=== PATIENT | male | born 1955 | race African-American/Black ===

== ENCOUNTER 2021-04-21 16:17 | Emergency (ER) | payer OTHER, SELFPAY ==
--- NOTE | ~2021-04-21 | CT_ITS ---
EXAMINATION: CT abdomen pelvis w con DATE: 04/21/2021 23:09 INDICATION: Epigastric abdominal pain for 2 days. Pain at gastrostomy tube site. TECHNIQUE: Computed tomography (CT) of the abdomen and pelvis was performed with 100 cc Omnipaque 350 intravenous contrast. Automated exposure control and iterative reconstruction technique were employe d. Exam dose: 279.47 mGy-cm total exam DLP. COMPARISON: None. FINDINGS: Emphysematous changes are noted in the included lower lung zones. There is atelectasis and groundglass infiltrate in the lower lobes. Cardiomegaly. Mild pericardial effusion. Small sliding hiatal hernia. The gallbladder is distended. There is no apparent gallbladder wall thickening or pericholecystic flu id or fat stranding. No bile duct or pancreatic duct dilatation. No hepatic, splenic, pancreatic, adrenal or renal space-occupying mass lesion is evident. Bilateral r enal scarring. No suspicious renal mass lesion is evident. No urinary tract calculus or hydroureteron ephrosis is detected. IVC filter is noted. There is extensive calcification of the abdominal aorta appears calcification and ectasia of the katharina c arteries. The urinary bladder appears to be largely evacuated. There is prominent soft tissue density in the re gion of the prostate gland along the anterior wall of the rectum. Prostate or rectal malignancy is no t excluded. Gastrostomy tube is noted in the gastric lumen. No bowel obstruction or intraperitoneal free air is detected. There are some high density material wi thin the colon Prominent patchy sclerotic areas noted at the femoral heads suggesting avascular necrosis. IMPRESSION: Gastrostomy tube in gastric lumen Atelectasis and groundglass infiltrate in the lower lobes Cardiomegaly, mild pericardial effusion Small sliding hiatal hernia IVC filter Prominent soft tissue density in the prostate gland and anterior wall of the rectum; prostate or rect al malignancy is not excluded Bilateral femoral head avascular necrosis Reviewed, dictated and finalized at [facility]. Reviewed, dictated and finalized at [facility]. IMPRESSION: Gastrostomy tube in gastric lumen Atelectasis and groundglass infiltrate in the lower lobes Cardiomegaly, mild pericardial effusion Small sliding hiatal hernia IVC filter Prominent soft tissue density in the prostate gland and anterior wall of the re ctum; prostate or rectal malignancy is not excluded Bilateral femoral head avascular necrosis
--- NOTE | ~2021-04-21 | XR_ITS ---
XR chest 1V portable DATE: 04/21/2021 20:31 INDICATION: Cough, shortness of breath TECHNIQUE: Portable supine AP view on 04/21/2021 at 2027 hours COMPARISON: 07/02/2011 2 view chest FINDINGS: Bilateral hyperinflation suggesting obstructive airways disease. There is discoid scarring or atelectasis at the right lung base. Cardiomegaly. Aortic calcification. IMPRESSION: Bilateral hyperinflation suggesting COPD Discoid atelectasis or scarring at the right base Cardiomegaly Reviewed, dictated and finalized at location [facility].
[2021-04-21 16:39] VITALS: BP 90/66; PULSE 75; RESP 20; TEMP 36.7; O2SAT 99
[2021-04-21 18:12] LABS: Basophils Percent Auto 1.3 % (0.2-1.2); Hematocrit 41.4 % (42.0-52.0); Hemoglobin 12.8 g/dL (14.0-18.0); Immature Granulocyte Absolute 0.01 K/mm3 (0.00-0.031); Immature Granulocyte Percent A 0.3 % (0-0.5); Immature Platelet Fraction Pct 7.2 % (0.9-11.2); Lymphocytes Absolute Auto 1.12 K/mm3 (0.9-3.2); Lymphocytes Percent Auto 37.7 % (18.3-44.2); Mean Corpuscular HGB Conc 30.9 g/dl (32-36); Mean Corpuscular Hemoglobin 26.8 pg (26-34); Mean Corpuscular Volume 86.8 fl (80-100); Mean Platelet Volume 11.3 fl (7.4-10.4); Monocytes Absolute Auto 0.3 K/mm3 (0.1-0.6); Monocytes Percent Auto 10.8 % (2.6-8.5); Neutrophils Absolute Auto 1.5 K/mm3 (1.3-6.7); Neutrophils Percent Auto 48.9 % (45.5-73.1); Platelet Count Result 145 k/mm3 (150-375); Red Blood Count 4.77 M/mm3 (4.6-6.20); Red Cell Distribution Width 19.5 % (11.5-14.5)
--- NOTE | 2021-04-21 18:21 | PC.NURSE ---
per lab green top needs redrawn Rosy Callaway notified to draw pt in lobby.
[2021-04-21 19:01] VITALS: BP 86/62; PULSE 75; RESP 20; TEMP 36.8; O2SAT 100
[2021-04-21 19:01] LABS: Alanine Aminotransferase 69 U/L (4-50); Albumin Level 3.8 g/dL (3.5-5.1); Alkaline Phosphatase 248 U/L (38-126); Anion Gap 6 mmol/L (8-16); Aspartate Amino Transferase 61 U/L (17-59); Bilirubin,Total 0.9 mg/dL (0.2-1.3); Blood Urea Nitrogen 14 mg/dL (9-20); CRP 0.6 mg/dL (<1.0); Calcium 8.7 mg/dL (8.4-10.2); Carbon Dioxide 35 mmol/L (22-30); Chloride 96 mmol/L (98-107); Estimated CRCL calculation 62 ml/min; Estimated Glomerular Filt Rate > 60; Glucose 111 mg/dL (65-110); Potassium 3.4 mmol/L (3.4-5.0); Sodium 137 mmol/L (137-145)
[2021-04-21 19:47] VITALS: BP 108/81; PULSE 69; RESP 15; O2SAT 100
[2021-04-21 19:49] VITALS: RESP 15; O2SAT 100
[2021-04-21 23:00] LABS: Add Urine Microscopic? NO; Appearance Urine Clear (Clear); Bilirubin Urine Negative (Negative); Blood Urine Negative (Negative); Color Urine Yellow (Yellow); Glucose Urine UA Negative (Negative); Ketones Urine Negative (Negative); Leukocyte Esterase Ur Negative LEU/UL (Negative); Nitrate Urine Negative (Negative); Protein Urine Negative (Negative); Specific Grav Ur 1.013 (1.001-1.035); Urobilinogen Urine Negative mg/dL (<2.0)
--- NOTE | 2021-04-21 23:37 | ED.GENADULT ---
HPI - General Adult General Chief complaint: Unspecified Stated complaint: ABD PAIN HX OF G TUBE PLACEMENT, FEVER Time Seen by Provider: 04/21/21 19:55 History of Present Illness HPI narrative: Patient is a 65-year-old male who presents the ER with reports of epigastric pain. Located around his recent G-tube. Denies drainage. Recently placed at [facility]. Reports he had a stroke and developed pneumonia due to aspiration. Related Data Allergies Allergy/AdvReac Type Severity Reaction Status Date / Time NKDA Allergy Unknown Unknown Uncoded 04/21/21 19:44 Review of Systems Review of Systems: All systems reviewed & are unremarkable except as noted in HPI and below Constitutional: Constitutional: Denies chills, Reports fever(s) and Denies night sweats ENT: Denies sinus pressure and Denies sore throat Cardiovascular: Cardiovascular: Denies chest pain, Denies leg edema and Denies radiating jaw, neck or arm pain Respiratory: Respiratory: Denies chest congestion, Denies cough and Denies dyspnea Gastrointestinal: Gastrointestinal: Reports abdominal pain, Denies nausea and Denies vomiting PMFSH Past Medical History Medical History (Updated 04/21/21 @ 23:56 by Jun Nath MD) CVA (cerebral vascular accident) Depression Hypertension Seizure disorder Surgical History Surgical History (Updated 04/21/21 @ 23:56 by Jun Nath MD) Gastrointestinal tube present Social History Social History (Updated 04/21/21 @ 23:56 by Jun Nath MD) Social History: History of alcohol abuse Gender identity (if verbalized by the patient): Male Exam Narrative: GENERAL: Well-appearing, well-nourished, and in no acute distress. HEAD: Normocephalic, atraumatic. EYES: PERRL and EOMI. ENT: Mucous membranes moist. CHEST: Clear to auscultation. No respiratory distress. HEART: Regular rate and rhythm. Normal peripheral pulses. ABDOMEN: Soft, G-tube site with sutures still in place. No purulent drainage. Mild discomfort around G-tube site. Nondistended. EXTREMITIES: Normal range of motion. No edema. Left-sided weakness. SKIN: Warm, dry, no rash. NEURO: Alert and oriented x3. Chronic left-sided hemiparesis. PSYCH: Normal mood and affect. Course Course Emergency Course: Patient informed of results. Discharge home. Vital Signs Vital signs: Vital Signs Temperature 98.1 F 04/21/21 16:39 Pulse Rate 75 04/21/21 16:39 Respiratory Rate 20 04/21/21 16:39 Blood Pressure 90/66 L 04/21/21 16:39 Pulse Oximetry 99 04/21/21 16:39 Temperature 98.2 F 04/21/21 19:01 Pulse Rate 72 04/22/21 01:01 Respiratory Rate 15 04/22/21 01:01 Blood Pressure 110/80 04/22/21 01:01 Pulse Oximetry 100 04/22/21 01:01 Medical Decision Making Vital Signs Vital Signs: Vital Signs Temperature 98.1 F 04/21/21 16:39 Pulse Rate 75 04/21/21 16:39 Respiratory Rate 20 04/21/21 16:39 Blood Pressure 90/66 L 04/21/21 16:39 Pulse Oximetry 99 04/21/21 16:39 Temperature 98.2 F 04/21/21 19:01 Pulse Rate 72 04/22/21 01:01 Respiratory Rate 15 04/22/21 01:01 Blood Pressure 110/80 04/22/21 01:01 Pulse Oximetry 100 04/22/21 01:01 Lab Data Result diagrams: 04/21/21 17:43 04/21/21 18:33 Labs: Lab Results 04/21/21 04/21/21 04/21/21 Range/Units 17:43 17:43 18:33 WBC 3.0 L (4.5-10.0) K/mm3 RBC 4.77 (4.6-6.20) M/mm3 Hgb 12.8 L (14.0-18.0) g/dL Hct 41.4 L (42.0-52.0) % MCV 86.8 (80-100) fl MCH 26.8 (26-34) pg MCHC 30.9 L (32-36) g/dl RDW 19.5 H (11.5-14.5) % Plt Count 145 L (150-375) k/mm3 MPV 11.3 H (7.4-10.4) fl Immature Gran % (Auto) 0.3 (0-0.5) % Neut % (Auto) 48.9 (45.5-73.1) % Lymph % (Auto) 37.7 (18.3-44.2) % Rock % (Auto) 10.8 H (2.6-8.5) % Eos % (Auto) 1.0 (0-4.4) % Baso % (Auto) 1.3 H (0.2-1.2) % Lymph # (Auto) 1.12 (0.9-3.2) K/mm3 Rock # (Auto) 0.3
[2021-04-22 01:01] VITALS: BP 110/80; PULSE 72; RESP 15; O2SAT 100
== END 2021-04-22 01:39 ==
PROVIDERS: Emergency Provider Emergency Medicine; PCP Internal Medicine
DX: R10.13 Epigastric pain (principal); I10 Essential (primary) hypertension; G40.909 Epilepsy, unspecified, not intractable, without status epilepticus; Z93.1 Gastrostomy status; Z86.73 Personal history of transient ischemic attack (TIA), and cerebral infarction without residual deficits; I51.7 Cardiomegaly; K44.9 Diaphragmatic hernia without obstruction or gangrene; M87.9 Osteonecrosis, unspecified; R91.8 Other nonspecific abnormal finding of lung field; R93.49 Abnormal radiologic findings on diagnostic imaging of other urinary organs
CPT/HCPCS: 36415; 51701; 71045; 74177; 80053; 81003; 83605; 85025; 85055; 86140; 99284; Q9967

== ENCOUNTER 2023-11-14 21:25 | Inpatient (IN) | payer MEDICARE, MEDICAID, SELFPAY ==
--- NOTE | ~2023-11-14 | CT_ITS ---
Non-contrast CT scan of the Abdomen and Pelvis Clinical indication: Abdominal pain Technique: 2.5 mm axial scans were obtained through the abdomen and pelvis without intravenous or or al contrast. Dose reduction technique was used on this scan by utilizing automated exposure control a nd iterative reconstruction technique. The dose-length product (DLP) was 371.06 mGy-cm. COMPARISON: 04/21/2021 Findings: Images through the lung bases reveal no acute abnormalities. [id number] hiatal tamika ia noted. There is no evidence of renal or ureteral calculi. The kidneys and the ureters are nondilated. The liver, spleen, pancreas, gallbladder, and adrenals appear normal. IVC filter present. There are a therosclerotic calcifications of the aorta. Right inguinal hernia contains a loop of small bowel. Left inguinal hernia contains several loops of small bowel. No bowel obstruction or bowel wall thickening evident. Images through the pelvis were performed. There is no evidence of ascites or lymphadenopathy. Urinary bladder unremarkable. No pelvic mass evident. Impression: Bilateral small bowel containing inguinal hernias, left larger than right. No bowel obstruction or wing wel wall thickening. Reviewed, dictated and finalized at location . Impression: Bilateral small bowel containing inguinal hernias, left larger than right. No b owel obstruction or bowel wall thickening.
--- NOTE | ~2023-11-14 | XR_ITS ---
Clinical Indication: Weakness PA and lateral views of the chest: Comparison: 04/21/2021 Findings: The lungs are clear, without evidence of focal consolidation or pleural effusion. Possible COPD. Cardiomediastinal silhouette is within normal limits. Bones and soft tissues are unremarkable. Impression: Clear lungs. Possible COPD. Reviewed, dictated and finalized at location . Impression: Clear lungs. Possible COPD.
--- NOTE | 2023-11-14 21:30 | ECG_ITS ---
Measurements Intervals [place] Rate: 66 P: 58 TN: 147 QRS: -1 QRSD: 88 T: 76 QT: 428 QTc: 452 Interpretive Statements SINUS RHYTHM MINIMAL Q WAVES- LATERAL LEADS BASELINE ARTIFACT- I, II, III, AVR, AVL, AVF, V1-V6 BORDERLINE ECG NO PREVIOUS ECG AVAILABLE FOR COMPARISON Electronically Signed On 11-15-2023 6:38:44 CDT by Jabier Neumann D.O.
[2023-11-14 21:31] VITALS: BP 74/60; PULSE 71; RESP 12; TEMP 36.4; O2SAT 100
[2023-11-14 21:35] VITALS: PULSE 85; O2SAT 100
[2023-11-14 23:04] VITALS: BP 103/64; PULSE 71; RESP 16; O2SAT 95
[2023-11-14 23:06] LABS: Basophils Absolute Auto 0.1 K/mm3 (0.0-0.1); Basophils Percent Auto 0.5 % (0.2-1.2); Eosinophils Absolute Auto 0.1 K/mm3 (0-0.3); Eosinophils Percent Auto 0.8 % (0-4.4); Hematocrit 41.6 % (42.0-52.0); Hemoglobin 12.6 g/dL (14.0-18.0); Immature Granulocyte Absolute 0.04 K/mm3 (0.00-0.031); Immature Granulocyte Percent A 0.4 % (0-0.5); Lymphocytes Absolute Auto 1.63 K/mm3 (0.9-3.2); Lymphocytes Percent Auto 14.4 % (18.3-44.2); Mean Corpuscular HGB Conc 30.3 g/dl (32-36); Mean Corpuscular Volume 95.9 fl (80-100); Mean Platelet Volume 9.1 fl (7.4-10.4); Monocytes Percent Auto 8.6 % (2.6-8.5); Neutrophils Absolute Auto 8.5 K/mm3 (1.3-6.7); Neutrophils Percent Auto 75.3 % (45.5-73.1); Platelet Count Result 250 k/mm3 (150-375); Red Blood Count 4.34 M/mm3 (4.6-6.20); Red Cell Distribution Width 14.5 % (11.5-14.5); White Blood Count 11.3 K/mm3 (4.5-10.0)
[2023-11-14 23:19] LABS: Alanine Aminotransferase 32 U/L (6-50); Albumin Level 3.7 g/dL (3.5-5.1); Alkaline Phosphatase 115 U/L (38-126); Anion Gap 7 mmol/L (8-16); Aspartate Amino Transferase 38 U/L (17-59); Bilirubin,Total 0.6 mg/dL (0.2-1.3); Blood Urea Nitrogen 35 mg/dL (9-20); Calcium 7.8 mg/dL (8.4-10.2); Carbon Dioxide 25 mmol/L (22-30); Chloride 108 mmol/L (98-107); Estimated CRCL calculation 15 ml/min; Estimated Glomerular Filt Rate 19; Glucose 120 mg/dL (65-110); Potassium 4.5 mmol/L (3.4-5.0); Sodium 140 mmol/L (137-145)
[2023-11-14] MEDS: SODIUM CHLORIDE 0.9% IV 1,000 ML 999 ML IV CONT (23:27)
[2023-11-14] MEDS: ONDANSETRON INJ 4 MG/2 ML VIAL IV PUSH (23:27)
[2023-11-14 23:49] LABS: Lipase 364 U/L (23-300)
[2023-11-14 23:50] LABS: Lactic Acid Reflex 1.5 mmol/L (0.7-2.0)
[2023-11-15] VITALS (14 sets, daily range): BP systolic 98–133; BP diastolic 59–97; PULSE 67–86; RESP 12–18; TEMP 36.4–37; O2SAT 95–100; BMI 21.8
[2023-11-15 00:09] LABS: Troponin I 0.074 ng/mL (0.000-0.034)
[2023-11-15 00:29] LABS: Influenza A QL RT-PCR Negative (Negative); Influenza B QL RT-PCR Negative (Negative); RSV RNA, RT-PCR Negative (Negative); SARS-CoV-2 RNA PCR Negative (Negative)
[2023-11-15] MEDS: ASPIRIN 81 MG CHEWABLE TABLET 324 MG PO (01:22)
--- NOTE | 2023-11-15 01:22 | ED.GENADULT ---
HPI - General Adult General Chief complaint: Weakness Stated complaint: vomiting Time Seen by Provider: 11/14/23 22:44 History of Present Illness HPI narrative: Patient is 67-year-old gentleman who presents to emergency department with chief complaint of weakness and lethargy patient is a resident over at [facility] and recently had a stroke. The patient had had an episode of vomiting that they were concerned may have been coffee-ground the patient is on Eliquis. The patient reports no black tarry stool denies bloody emesis. The patient states that he has some abdominal discomfort and reports that his right shoulder feels uncomfortable. Related Data Home Medications Medication Instructions Recorded Confirmed albuterol sulfate 2.5 mg/3 mL 2.5 mg inhalation Q4H PRN 11/02/23 11/02/23 (0.083 %) solution for nebulization Shortness Of Breath Or Wheezing amiodarone 200 mg tablet 200 mg PO DAILY 11/02/23 11/02/23 apixaban 5 mg tablet (Eliquis) 5 mg PO Q12H 11/02/23 11/02/23 atorvastatin 80 mg tablet 80 mg PO HS 11/02/23 11/02/23 clonazepam 0.5 mg tablet 0.5 mg PO DAILY 11/02/23 11/02/23 empagliflozin 10 mg tablet 10 mg PO DAILY 11/02/23 11/02/23 furosemide 20 mg tablet 20 mg PO DAILY 11/02/23 11/02/23 ipratropium 0.5 mg-albuterol 3 mg 3 ml inhalation Q6H PRN Wheezing 11/02/23 11/02/23 (2.5 mg base)/3 mL nebulization soln levetiracetam 1,000 mg tablet 1,250 mg PO BID 11/02/23 11/02/23 levothyroxine 100 mcg tablet 125 mcg PO DAILY 11/02/23 11/02/23 metoprolol tartrate 25 mg tablet 25 mg PO DAILY 11/02/23 11/02/23 multivitamin with folic acid 400 mcg PO DAILY 11/02/23 11/02/23 sacubitril 49 mg-valsartan 51 mg 1 tablet PO BID 11/02/23 11/02/23 tablet (Entresto) umeclidinium 62.5 mcg/actuation 1 inh inhalation DAILY 11/02/23 11/02/23 blister powder for inhalation (Incruse Ellipta) Allergies Allergy/AdvReac Type Severity Reaction Status Date / Time NKDA Allergy Unknown Unknown Uncoded 04/21/21 19:44 Review of Systems Review of Systems: A 10 system review of systems was completed on the patient and is negative except for what is stated in the HPI. Nursing and ancillary documentation was reviewed. [facility] Past Medical History Medical History CVA (cerebral vascular accident) Depression Hypertension Seizure disorder Surgical History Surgical History Gastrointestinal tube present Social History Social History Social History: History of alcohol abuse Alcohol intake: never Substance use: never Substance use type: does not use Do You Feel Safe in your Home?: Yes Lack of Transportation: No Lack of Food: Never True Current Housing: I Have Housing Concerned About Future Housing: No Difficulty Paying Gas/Electric Bills: No Difficulty Paying for Meds: No Currently Unemployed: No Education: Don't Know Difficulty w/ Childcare or Family Care: No Gender identity (if verbalized by the patient): Male Spiritual care concerns: No Exam Narrative: GENERAL: Well-appearing, well-nourished, and in no acute distress. HEAD: Normocephalic, atraumatic. EYES: PERRLA and EOMI. ENT: Nares clear, no rhinorrhea or epistaxis. Mucous membranes moist. NECK: Supple. CHEST: Clear to auscultation. No respiratory distress. HEART: Regular rate and rhythm. No murmur heard. Normal peripheral pulses. ABDOMEN: Soft, nontender, nondistended, normal active bowel sounds. : Guaiac-negative stool EXTREMITIES: Normal range of motion. No edema. SKIN: Warm, dry, no rash. NEURO: No focal deficits. Alert and oriented x3. Left-sided weakness at baseline PSYCH: Normal mood and affect. Course Vital Signs Vital signs: Vital Signs Temperature 36.4 C 11/14/23 21:31 Pulse Rate 71 11/14/23 21:31 Respiratory Rat
[2023-11-15] MEDS: SODIUM CHLORIDE 0.9% IV 1,000 ML 999 ML IV CONT (01:27)
[2023-11-15 02:07] LABS: Appearance Urine Cloudy (Clear); Bacteria Urine None Seen /hpf; Bilirubin Urine Negative (Negative); Blood Urine 2+ (Negative); Color Urine Yellow (Yellow); Glucose Urine UA 3+ mg/dL (Negative); Granular Casts Urine Present /lpf; Ketones Urine Negative (Negative); Leukocyte Esterase Ur Negative LEU/UL (Negative); Mucus Urine Present /lpf; Need Manual Microscopic Reviewed; Nitrate Urine Negative (Negative); Non Pathogenic Casts >20; Protein Urine 1+ mg/dL (Negative); RBC Urine 0-2 /hpf (0-2); Squamous Epithelial Cell Urine Occasional /hpf (Few); Urobilinogen Urine 0.2 mg/dL (<2.0)
[2023-11-15 02:10] LABS: Add Urine Microscopic? YES
[2023-11-15] MEDS: SODIUM CHLORIDE 0.9% IV 1,000 ML 125 ML IV CONT ×2 (03:50→14:39)
--- NOTE | 2023-11-15 05:10 | ADMGEN ---
This patient, Tio Agarwal, was admitted to IMU Room 204-01 at 0450. Patient/family oriented to hospital policies and general routines including ID bracelet, bed and alarms, visiting hours, pain management, procedures, bathroom and other care routines, personal items, smoking policy, room service/diet, and visiting hours. Information on how to activate the Rapid Response Team has been discussed. Patient/Family are encouraged to report perceived risks to care and to ask questions if they do not understand what they are told or what they should do.
[2023-11-15 06:31] LABS: Basophils Percent Auto 0.5 % (0.2-1.2); Eosinophils Absolute Auto 0.1 K/mm3 (0-0.3); Eosinophils Percent Auto 1.3 % (0-4.4); Hematocrit 37.9 % (42.0-52.0); Hemoglobin 11.4 g/dL (14.0-18.0); Immature Granulocyte Absolute 0.02 K/mm3 (0.00-0.031); Immature Granulocyte Percent A 0.2 % (0-0.5); Lymphocytes Absolute Auto 1.56 K/mm3 (0.9-3.2); Mean Corpuscular HGB Conc 30.1 g/dl (32-36); Mean Corpuscular Hemoglobin 29.1 pg (26-34); Mean Corpuscular Volume 96.7 fl (80-100); Mean Platelet Volume 9.4 fl (7.4-10.4); Monocytes Absolute Auto 0.6 K/mm3 (0.1-0.6); Monocytes Percent Auto 7.3 % (2.6-8.5); Neutrophils Absolute Auto 6.3 K/mm3 (1.3-6.7); Neutrophils Percent Auto 72.7 % (45.5-73.1); Platelet Count Result 213 k/mm3 (150-375); Red Blood Count 3.92 M/mm3 (4.6-6.20); Red Cell Distribution Width 14.4 % (11.5-14.5); White Blood Count 8.7 K/mm3 (4.5-10.0)
[2023-11-15 06:45] LABS: Anion Gap 5 mmol/L (8-16); Blood Urea Nitrogen 34 mg/dL (9-20); Calcium 7.3 mg/dL (8.4-10.2); Carbon Dioxide 21 mmol/L (22-30); Chloride 114 mmol/L (98-107); Estimated CRCL calculation 27 ml/min; Estimated Glomerular Filt Rate 30; Glucose 112 mg/dL (65-110); Potassium 4.5 mmol/L (3.4-5.0); Sodium 140 mmol/L (137-145)
--- NOTE | 2023-11-15 08:25 | PM.IMHP ---
H&P: HPI History of Present Illness Date/Time: 11/15/23 08:25 Chief Complaint: weakness vomiting Narrative: This is a 67 year old year old male with a significant past medical history of CVA, depression, hypertension, seizure disorder, G-tube placement who presented to the hospital from [facility] with chief complaint of weakness, lethargy, and vomiting. Patient states that he was recently hospitalized at [facility] after having seizures. On discharge he was transported to [facility] for additional strength training. While there, nursing reported that he had what looked like a coffee ground emesis and considering he is on Eliquis, they sent him here to [facility] for additional work up. Work up in the hospital includes CT of the abdomen and pelvis which shown bilateral small bowel containing inguinal hernias, left larger than right, no bowel obstruction or bowel wall thickening. CXR normal. Initial labs WBC 10.9, Hgb 13.3, BUN 36, Creatinine 3.50, eGFR 21, Calcium 8.3, AST 71, troponin 0.074, Lipase 364 liver enzymes are normal. UA showing 1+ protein, 3+ glucose, 2+ urine blood. Respiratory panel negative for Influenza A and B, RSV, and Covid. Patient received 2L NS, Zofran, Aspirin 324 mg while in the ER. General surgery consulted for evaluation of his inguinal hernia's found on CT. On examination today patient is alert and oriented x3, lying in the bed. VSS, he is afebrile, currently on room air. He denies any fever, chills, headache, nausea, vomiting, diarrhea, abdominal pain, chest pain, or shortness of breath. He states that he only had one episode of vomiting and DIANNE sent him here for evaluation. Labs today reveal Hgb 11.4, Bicarb 21, BUN 34, Creatinine 2.60, eGFR 30, Troponin 0.048>0.039 and remains flat, LIpase 186. Review of Systems Review of Systems: All systems reviewed & are unremarkable except as noted in HPI and below Constitutional: Constitutional: Reports as per HPI and Reports no additional constitutional complaints Eyes: Eyes: Reports as per HPI and Reports no additional eye complaints ENT: Reports system reviewed and no additional complaints, except as documented and Reports as per HPI Cardiovascular: Cardiovascular: Reports as per HPI and Reports no additional cardiovascular complaints Respiratory: Respiratory: Reports as per HPI and Reports no additional respiratory complaints Gastrointestinal: Gastrointestinal: Reports as per HPI and Reports no additional gastrointestinal complaints Genitourinary: Genitourinary: Reports no additional male genitourinary complaints and Reports as per HPI Musculoskeletal: Musculoskeletal: Reports no additional musculoskeletal complaints and Reports as per HPI Integumentary/Breasts: Skin/Breast: Reports system reviewed and no additional complaints, except as docu and Reports as per HPI Neurologic: Reports system reviewed and no additional complaints, except as documented and Reports as per HPI Psychiatric: Psychiatric: Reports no additional psychiatric complaints and Reports as per HPI PMFSH Past Medical History Medical History CVA (cerebral vascular accident) Depression Emesis History of gastrostomy tube placement Since removed Hypertension Hypothyroid Seizure disorder Social History Social History Social History: History of alcohol abuse Years smoked: 50 Smoking status: Current every day smoker Tobacco type: cigarettes Second hand tobacco smoke exposure: No Additional smoking assessment comments: pt states he sneaks his 3 cigarettes into rehab to smoke each day Alcohol intake: former Substance use: never Substance use type: does not use Do You Feel Safe in your Home?: Yes Lack of Transportation: No Lack of Food: Sometimes True Current Housing: I Have Housing Concerned About Future Housing: No Difficu
--- NOTE | 2023-11-15 09:10 | PC.NURSE ---
Pt retaining 790 mL of urine per bladder scan. Mireya MATERIAL RECLAIMER notified. Order to insert champagne.
[2023-11-15] MEDS: MULTIVITAMINS /C LUTEIN (CENTRUM SILVER) TABLET *BKC 1 TAB PO (09:36)
[2023-11-15] MEDS: METOPROLOL SUCCINATE EXT REL 25 MG TABCR 75 MG PO (09:36)
[2023-11-15] MEDS: ASPIRIN 81 MG CHEWABLE TABLET PO (09:37)
[2023-11-15] MEDS: LEVOTHYROXINE SODIUM 125 MCG TABLET PO (09:37)
[2023-11-15] MEDS: levETIRAcetam 500 MG TABLET 1000 MG PO ×2 (09:37→21:27)
[2023-11-15] MEDS: AMIODARONE HCL 200 MG TABLET PO (09:37)
[2023-11-15] MEDS: NICOTINE (*PBKC) 21 MG PATCH 1 PATCH TRANSDERM (09:40)
[2023-11-15 09:56] LABS: Lipase 186 U/L (23-300)
[2023-11-15 10:08] LABS: Troponin I 0.048 ng/mL (0.000-0.034)
--- NOTE | 2023-11-15 10:25 | PM.CNGS ---
Assessment and Plan Assessment and plan (1) Inguinal hernia bilateral, non-recurrent: Code(s): K40.20 - Bilateral inguinal hernia, without obstruction or gangrene, not specified as recurrent Status: Acute Assessment and Plan: CT scan in the ER showed bilateral inguinal hernias that are containing small bowel. No evidence of obstruction or strangulation. Both hernias are completely reducible and asymptomatic. They are chronic for the patient. This is not the reason for his admission, but was incidentally found on CT. Discussed with the patient that there is no indication for any urgent surgical intervention, but he could follow-up as an outpatient if he wanted to be evaluated for surgical repair after his acute medical issues have been addressed. We also discussed that he has multiple comorbidities listed below that would increase his risks for surgery if this was considered in the future. I spoke with him about signs and symptoms of incarceration and strangulation, which could occur in the future while monitoring his hernias. (2) Emesis: Code(s): R11.10 - Vomiting, unspecified Status: Acute (3) Urinary retention: Code(s): R33.9 - Retention of urine, unspecified Status: Acute (4) Acute kidney injury: Code(s): N17.9 - Acute kidney failure, unspecified Status: Acute (5) Elevated troponin: Code(s): R79.89 - Other specified abnormal findings of blood chemistry Status: Acute (6) A-fib: Code(s): I48.91 - Unspecified atrial fibrillation Status: Chronic (7) Anticoagulant long-term use: Code(s): Z79.01 - custodial (current) use of anticoagulants Status: Acute (8) COPD (chronic obstructive pulmonary disease): Code(s): J44.9 - Chronic obstructive pulmonary disease, unspecified Status: Acute (9) H/O: CVA (cerebrovascular accident): Code(s): Z86.73 - Personal history of transient ischemic attack (TIA), and cerebral infarction without residual deficits Status: Chronic (10) HFrEF (heart failure with reduced ejection fraction): Code(s): I50.20 - Unspecified systolic (congestive) heart failure Status: Acute Plan I have discussed the patient's case and plan of care with Dr. Hernandez. History of Present Illness Consult details Consult date: 11/15/23 Reason for consult: other (Bilateral inguinal hernias containing small bowel) Requesting physician: Mireya Dill APRN Narrative: This is a 67-year-old man with a history of CVA, atrial fibrillation on Eliquis, COPD, and other medical problems, who we have been asked to see in surgical consultation for bilateral inguinal hernias. The patient was admitted to [facility] in October for seizures. On discharge, he was transferred to [facility]. The patient reports living at home prior to his admission a [facility] in October. He reports having his stroke about 2 years ago with residual left-sided weakness, and he eventually gained enough strength to walk and be independent enough to live at home after his stroke until his recent hospitalization at [facility]. He was brought into the ER from [facility] due to reported coffee-ground emesis. Workup in the ER showed mild leukocytosis, DOMINGO, and elevated troponin. Chest x-ray showed findings of COPD. CT scan of the abdomen and pelvis showed bilateral small bowel containing inguinal hernias, left larger than right. No bowel obstruction or bowel wall thickening. He was admitted to the IMU. The patient reports noticing a bulge in his groin for at least the last 7-8 months. He denies ever having any pain in his groin. He is not having any pain at the time of my exam. No previous hernia repairs. Denies any previous abdominal surgeries, although he has a scar consistent with previous gastrostomy tube and this is mentioned in his EMR. Patient did not recall this. Also in review of his rehab documentation, there is mention of having
[2023-11-15] MEDS: TAMSULOSIN HCL 0.4 MG CAPSULE PO (12:01)
[2023-11-15 13:01] LABS: Troponin I 0.039 ng/mL (0.000-0.034)
[2023-11-15] MEDS: APIXABAN 5 MG TABLET PO (21:27)
[2023-11-15] MEDS: ATORVASTATIN 40 MG TABLET 80 MG PO (21:27)
[2023-11-15] MEDS: ZOLPIDEM TARTRATE (*CRX) 5 MG TABLET PO (21:27)
[2023-11-16] VITALS (10 sets, daily range): BP systolic 120–128; BP diastolic 81–89; PULSE 60–84; RESP 14–18; TEMP 36.3–36.6; O2SAT 95–100; BMI 20.7
[2023-11-16] MEDS: clonazePAM (*CRX) 0.5 MG TABLET PO ×2 (01:20→09:44)
[2023-11-16 04:38] LABS: Basophils Percent Auto 0.5 % (0.2-1.2); Eosinophils Absolute Auto 0.1 K/mm3 (0-0.3); Eosinophils Percent Auto 2.4 % (0-4.4); Hematocrit 33.8 % (42.0-52.0); Hemoglobin 10.3 g/dL (14.0-18.0); Immature Granulocyte Absolute 0.01 K/mm3 (0.00-0.031); Immature Granulocyte Percent A 0.2 % (0-0.5); Lymphocytes Absolute Auto 1.39 K/mm3 (0.9-3.2); Lymphocytes Percent Auto 23.6 % (18.3-44.2); Mean Corpuscular HGB Conc 30.5 g/dl (32-36); Mean Corpuscular Hemoglobin 29.4 pg (26-34); Mean Corpuscular Volume 96.6 fl (80-100); Mean Platelet Volume 9.6 fl (7.4-10.4); Monocytes Absolute Auto 0.5 K/mm3 (0.1-0.6); Monocytes Percent Auto 7.7 % (2.6-8.5); Neutrophils Absolute Auto 3.9 K/mm3 (1.3-6.7); Neutrophils Percent Auto 65.6 % (45.5-73.1); Platelet Count Result 204 k/mm3 (150-375); White Blood Count 5.9 K/mm3 (4.5-10.0)
[2023-11-16 05:11] LABS: Alanine Aminotransferase 23 U/L (6-50); Albumin Level 2.8 g/dL (3.5-5.1); Alkaline Phosphatase 86 U/L (38-126); Anion Gap 1 mmol/L (8-16); Aspartate Amino Transferase 30 U/L (17-59); Bilirubin,Total 0.8 mg/dL (0.2-1.3); Blood Urea Nitrogen 18 mg/dL (9-20); Calcium 7.9 mg/dL (8.4-10.2); Carbon Dioxide 24 mmol/L (22-30); Chloride 110 mmol/L (98-107); Estimated CRCL calculation 50 ml/min; Estimated Glomerular Filt Rate > 60; Glucose 139 mg/dL (65-110); Lipase 101 U/L (23-300); Magnesium 2.3 mg/dL (1.6-2.3); Potassium 3.9 mmol/L (3.4-5.0); Sodium 135 mmol/L (137-145)
[2023-11-16] MEDS: LEVOTHYROXINE SODIUM 125 MCG TABLET PO (06:09)
[2023-11-16] MEDS: UMECLIDINIUM BROMIDE 62.5 MCG ELLIPTA 1 PUFF INHALATION (08:06)
--- NOTE | 2023-11-16 09:25 | PM.DS ---
DS: Admitting Diagnosis Discharge Date 11/16/23 Admitting Diagnosis acute kidney injury urinary retention emesis weakness elevated troponin hypertension CVA Afib seizure hypothyroid DS: Discharge Diagnosis Discharge Diagnosis (1) Acute kidney injury: Code(s): N17.9 - Acute kidney failure, unspecified Status: Acute (2) Urinary retention: Code(s): R33.9 - Retention of urine, unspecified Status: Acute (3) Emesis: Code(s): R11.10 - Vomiting, unspecified Status: Acute (4) Weakness: Code(s): R53.1 - Weakness Status: Acute (5) Elevated troponin: Code(s): R79.89 - Other specified abnormal findings of blood chemistry Status: Acute (6) Hypertension: Code(s): I10 - Essential (primary) hypertension Status: Chronic (7) H/O: CVA (cerebrovascular accident): Code(s): Z86.73 - Personal history of transient ischemic attack (TIA), and cerebral infarction without residual deficits Status: Chronic (8) A-fib: Code(s): I48.91 - Unspecified atrial fibrillation Status: Chronic (9) Seizure: Code(s): R56.9 - Unspecified convulsions Status: Chronic (10) Hypothyroid: Code(s): E03.9 - Hypothyroidism, unspecified Status: Acute DS: Summary Hospital Course Reason for hospitalization: acute kidney injury urinary retention emesis weakness elevated troponin hypertension CVA Afib seizure hypothyroid Hospital Course: 11/15/23: This is a 67 year old year old male with a significant past medical history of? CVA, depression, hypertension, seizure disorder, G-tube placement who presented to the hospital from [facility] with chief complaint of weakness, lethargy, and vomiting. Patient states that he was recently hospitalized at [facility] after having seizures. On discharge he was transported to [facility] for additional strength training. While there, nursing reported that he had what looked like a coffee ground emesis and considering he is on Eliquis, they sent him here to [facility] for additional work up. Work up in the hospital includes CT of the abdomen and pelvis which shown bilateral small bowel containing inguinal hernias, left larger than right, no bowel obstruction or bowel wall thickening.? CXR normal. Initial labs WBC 10.9, Hgb 13.3, BUN 36, Creatinine 3.50, eGFR 21, Calcium 8.3, AST 71, troponin 0.074, Lipase 364 liver enzymes are normal. UA showing 1+ protein, 3+ glucose, 2+ urine blood. Respiratory panel negative for Influenza A and B, RSV, and Covid. Patient received 2L NS, Zofran, Aspirin 324 mg while in the ER. General surgery consulted for evaluation of his inguinal hernia's found on CT. On examination today patient is alert and oriented x3, lying in the bed. VSS, he is afebrile, currently on room air. He denies any fever, chills, headache, nausea, vomiting, diarrhea, abdominal pain, chest pain, or shortness of breath. He states that he only had one episode of vomiting and DIANNE sent him here for evaluation. Labs today reveal Hgb 11.4, Bicarb 21, BUN 34, Creatinine 2.60, eGFR 30, Troponin 0.048>0.039 and remains flat, Lipase 186. 3/08/29: labs today showing hemoglobin of 10.3, sodium 135, glucose 112-134, calcium 7.9, albumin 2.8. BUN and creatinine back to baseline, BUN 18, creatinine 1.3, EGFR is greater than 60 today. Patient is stable for discharge at this time to [facility]. patient will need a voiding trial in 2 days as he had urinary retention and a Lawrence was placed. He was started on Flomax yesterday. Prescription called to his pharmacy for Flomax. He will need to follow up with his PCP in 1 week. Final diagnosis: acute kidney injury likely secondary to dehydration, urinary retention Status at Discharge Cognitive/behavioral status at discharge: Alert and oriented x3 Functional status at discharge: uses cane/walker Overall status at discharge: patient is progressi
[2023-11-16] MEDS: TAMSULOSIN HCL 0.4 MG CAPSULE PO (09:43)
[2023-11-16] MEDS: METOPROLOL SUCCINATE EXT REL 25 MG TABCR 75 MG PO (09:43)
[2023-11-16] MEDS: FUROSEMIDE 20 MG TABLET PO (09:44)
[2023-11-16] MEDS: levETIRAcetam 500 MG TABLET 1000 MG PO (09:44)
[2023-11-16] MEDS: MULTIVITAMINS /C LUTEIN (CENTRUM SILVER) TABLET *BKC 1 TAB PO (09:44)
[2023-11-16] MEDS: ASPIRIN 81 MG CHEWABLE TABLET PO (09:46)
[2023-11-16] MEDS: AMIODARONE HCL 200 MG TABLET PO (09:46)
[2023-11-16] MEDS: NICOTINE (*PBKC) 21 MG PATCH 1 PATCH TRANSDERM (09:47)
[2023-11-16] MEDS: APIXABAN 5 MG TABLET PO (09:47)
--- NOTE | 2023-11-16 12:55 | P.CDI_ITS ---
CDI Query Clarification Request BMI 20.7 Nutritional Diagnostic Statement Moderate protein calorie malnutrition related to inadequate energy intake for greater that 7 days as evidenced by pt report of poor intake prior to admission, self reported -11% wt loss x 1 month, and NFPE findings for moderate subcutaneous fat loss and moderate muscle wasting. Please refer to the comprehensive nutrition assessment for further information. Please clarify the severity of protein calorie malnutrition if known: * Mild * Moderate * Severe * Other/Unspecified
[2023-11-16 15:03] LABS: SARS-CoV-2 RNA PCR Negative (Negative)
== END 2023-11-16 15:36 | DRG 641 ==
LOC: ANHED 11-15 02:32 → ANHIMU 11-15 03:49
PROVIDERS: Admitting Provider Internal Medicine; Emergency Provider Emergency Medicine; PCP Internal Medicine; Visit Provider Nurse Practitioner Acute Care
DX: E86.0 Dehydration (principal); E44.0 Moderate protein-calorie malnutrition; N17.9 Acute kidney failure, unspecified; I50.22 Chronic systolic (congestive) heart failure; I69.354 Hemiplegia and hemiparesis following cerebral infarction affecting left non-dominant side; K40.20 Bilateral inguinal hernia, without obstruction or gangrene, not specified as recurrent; E03.9 Hypothyroidism, unspecified; F32.A Depression, unspecified; F17.210 Nicotine dependence, cigarettes, uncomplicated; G40.909 Epilepsy, unspecified, not intractable, without status epilepticus; I48.91 Unspecified atrial fibrillation; I11.0 Hypertensive heart disease with heart failure; R33.9 Retention of urine, unspecified; R11.10 Vomiting, unspecified; R79.89 Other specified abnormal findings of blood chemistry; Z93.1 Gastrostomy status; Z68.20 Body mass index [BMI] 20.0-20.9, adult; Z79.01 Long term (current) use of anticoagulants; Z20.822 Contact with and (suspected) exposure to COVID-19; Z11.52 Encounter for screening for COVID-19
CPT/HCPCS: 36415; 71046; 74176; 80048; 80053; 81001; 83605; 83690; 83735; 84484; 85025; 86850; 86900; 86901; 87635; 87637; 93005; 94640; 96361; 96374; 97110; 97161; 97166; 97530; 99285; A9270; G0378; G0379; J2405; J7030